=== PATIENT | male | born 1975 | race Caucasian/White ===

== ENCOUNTER 2022-03-22 07:47 | Inpatient (IN) ==
--- NOTE | 2022-03-17 18:11 | EKG ---
[facility] Test Date: 2022-03-17 Pat Name: Emmanuel Shook Department: [facility] Room: Gender: Male Mutuel Clerk: : [id number] Requested By: Byron Lozano Order Number: [id number] Reading MD: Brendan Muñoz Measurements Intervals [place] Rate: 67 P: 40 DC: 204 QRS: 74 QRSD: 99 T: 37 QT: 406 QTc: 429 Interpretive Statements Sinus rhythm Borderline prolonged DC interval Electronically Signed On 03-17-2022 18:11:37 PDT by Brendan Muñoz /[id number]
[2022-03-17 18:33] LABS: Basophils # (Auto) 0.04 K/mcL (0.00-0.30); Basophils % (Auto) 0.4 % (0.0-2.0); Eosinophils # (Auto) 0.18 K/mcL (0.00-0.70); Hematocrit 49.9 % (40.1-51.0); Hemoglobin 16.7 g/dL (13.7-17.5); Lymphocytes % (Auto) 26.5 % (15.5-49.0); Mean Cell Volume 93.1 fL (80.0-100.0); Mean Corpuscular HGB Conc 33.5 g/dL (31.0-36.0); Mean Platelet Volume 9.8 fL (8.8-12.5); Monocytes % (Auto) 6.6 % (1.0-12.0); Neutrophils % (Auto) 64.1 % (38.0-78.0); Platelet Count 256 K/mcL (140-440); RBC 5.36 M/mcL (4.63-6.08); Red Cell Distribution Width 13.6 % (11.5-14.5); WBC 9.1 K/mcL (4.5-11.0)
[2022-03-17 18:38] LABS: Appearance,Urine CLEAR (Clear); Bilirubin,Urine Negative (Negative); Color,Urine YELLOW; Culture Indicated,Urine No; Glucose,Urine (UA) Negative (Negative); Ketones,Urine Negative (Negative); Leukocyte Esterase,Urine 25 /uL (Negative); Mucus,Urine FEW /hpf; Nitrate,Urine Negative (Negative); Protein,Urine Negative (Negative); Specific Gravity,Urine 1.014 (1.000-1.035); Urine Blood 0.03 mg/dL (Negative); Urine RBC 1 /hpf (0-3); Urine Squamous Epithelial Cell < 1 /hpf (0-4); Urine WBC 8 /hpf (0-4); Urobilinogen,Urine Negative
[2022-03-17 19:04] LABS: Blood Urea Nitrogen 14 mg/dL (6-20); Calcium 10.2 mg/dL (8.6-10.4); Carbon Dioxide 26 mmol/L (22-30); Chloride 103 mmol/L (96-108); Glomerular Filtration Rate 90; Glucose 79 mg/dL (70-105)
[2022-03-17 19:08] LABS: Estimated Average Glucose(eAG) 114 mg/dL; Hemoglobin A1C 5.6 % Hgb (4.0-6.0)
[~2022-03-22 07:47] MED LIST: 0.9 % SODIUM CHLORIDE 9 ML, KETOROLAC 30 MG, ROPIVACAINE HCL/PF 49.5 ML, EPINEPHrine 0.... IJ SCH; ACETAMINOPHEN 500 MG TABLET PO SCH; IPRATROPIUM/ALBUTEROL 3 ML AMPUL.NEB NEB PRN; PREGABALIN 75 MG CAPSULE PO SCH; SCOPOLAMINE 1 PATCH PATCH TOPICAL PRN; ceFAZolin 3 GM in DEXTROSE 5% IN WATER 50 ML IV SCH; oxyCODONE 10 MG TAB.ER.12H PO SCH
[2022-03-22] MEDS ORDERED: GLYCOPYRROLATE 0.2 MG/ML VIAL IV ONE (10:16)
[2022-03-22] MEDS ORDERED: PROPOFOL 200 MG/20 ML VIAL IV ONE (10:16)
[2022-03-22] MEDS ORDERED: fentaNYL 100 MCG/2 ML VIAL IV ONE (10:16)
[2022-03-22] MEDS ORDERED: KETAMINE 50 MG/ML Syringe (ANEST) IV ONE (10:16)
[2022-03-22] MEDS ORDERED: DEXAMETHASONE 10 MG/ML VIAL ONE (10:16)
[2022-03-22] MEDS ORDERED: ePHEDrine 50 MG/5 ML SYRINGE (ANEST) IV ONE (10:16)
[2022-03-22] MEDS ORDERED: LIDOCAINE HCL/PF 100 MG/5 ML SYRINGE IV ONE (10:16)
[2022-03-22] MEDS ORDERED: ROPIVACAINE HCL/PF 20 ML VIAL IJ ONE (10:16)
[2022-03-22] MEDS ORDERED: MAGNESIUM SULFATE 2 GM/50 ML BAG IV ONE (10:16)
[2022-03-22] MEDS ORDERED: ONDANSETRON 4 MG/2 ML VIAL ONE (10:16)
[2022-03-22] MEDS ORDERED: METOCLOPRAMIDE 10 MG/2 ML VIAL IV PRN (11:03)
[2022-03-22] MEDS ORDERED: METHOCARBAMOL 1,000 MG/10 ML VIAL IV PRN (11:03)
[2022-03-22] MEDS ORDERED: IPRATROPIUM/ALBUTEROL 3 ML AMPUL.NEB NEB PRN (11:03)
[2022-03-22] MEDS ORDERED: ONDANSETRON 4 MG/2 ML VIAL IV PRN (11:03)
[2022-03-22] MEDS ORDERED: MEPERIDINE 25 MG/ML VIAL IV PRN (11:03)
[2022-03-22] MEDS ORDERED: HYDROmorphone 0.5 MG/0.5 ML SYRINGE IV PRN (11:03)
[2022-03-22] MEDS ORDERED: ACETAMINOPHEN 1,000 MG/100 ML BAG IV ONE (11:03)
--- NOTE | 2022-03-22 11:09 | Brief Operative Note ---
Brief Operative Note Date of procedure: 03/22/22 Pre-op diagnosis: Right knee loose ligament Post-op diagnosis: same Procedure: Right knee revision polyliner Grafts/Implants: Yes Anesthesia: GETA Findings: loosened ligament Complications: none Surgeon: Joel Duncan Maintenance Engineer [employer]: Jarad Rodriguez Estimated blood loss (cc): 20 Tourniquet Time (Minutes): 17 Specimens Removed/Pathology: none sent Condition: stable Disposition: PACU
[2022-03-22] MEDS ORDERED: TRANEXAMIC ACID 1,000 MG/10 ML VIAL IV ONE (11:14)
[2022-03-22] MEDS ORDERED: TEMAZEPAM 15 MG CAPSULE PO PRN (11:14)
[2022-03-22] MEDS ORDERED: HYDROcodone/APAP 10/325MG TABLET PO PRN (11:14)
--- NOTE | 2022-03-22 11:27 | Discharge Plan ---
Discharge Instructions - TKA Patient Instructions Total Knee Protocol: For Total Knee: Start ROM JAKE with stationary bike or rocking chair. Work on gaining full extension of knee. Posterior dislocation precautions provided. Hip abductor strengthening and gait training instructions provided. Apply Cryocuff as instructed. Dressing Care: May shower in 2 days and Aquacel Ag - leave on for 5 days Discharge Plan Patient/Caregiver Discharge Instructions Activity: ambulate only with your walker and as per physical therapy Diet: Regular Diet Prescriptions: New docusate sodium 100 mg capsule 100 mg PO BID Qty: 60 0RF aspirin [Ecotrin Low Strength] 81 mg tablet,delayed release (DR/EC) 81 mg PO BID Qty: 60 0RF hydrocodone-acetaminophen 10-325 mg tablet 1 - 2 tab PO Q4H PRN (Reason: pain) Qty: 75 0RF No Action (DME) auto cpap 16-17 cmH2O See Rx Instructions .Route .MEDSUPPLY Qty: 1 0RF Rx Instructions: As directed epinephrine [EpiPen] 0.3 mg/0.3 mL auto-injector 0.3 mg IM ONCE Qty: 1 2RF Rx Instructions: as a single dose (DME) BD Eclipse Luer-Marla 3 mL 22 gauge x 1 1/2" syringe See Rx Instructions .Route Qty: 50 0RF Rx Instructions: As directed 1x week testosterone injection (DME) blood-glucose meter [Blood Glucose Monitoring] Kit See Rx Instructions .Route Qty: 1 0RF Rx Instructions: As directed daily sugar check, brand as permitted by insurance (DME) Blood Glucose Test Strip See Rx Instructions .Route Qty: 50 0RF Rx Instructions: As directed daily, strips to match glucometer brand (DME) lancets [Comfort EZ Lancets] 21 gauge misc See Rx Instructions .Route Qty: 50 0RF Rx Instructions: As directed, check glucose 1 x daily metformin 500 mg tablet extended release 24 hr 500 mg PO BID Qty: 60 11RF testosterone cypionate 200 mg/mL oil 100 mg subcut QWEEK Qty: 3 0RF Other Ambulatory Orders: Physical Therapy DC - TKA (Routine) Location: None Selected Ordered By: Jarad Rodriguez Toilet Riser Discharge Order (ONCE) Location: None Selected Ordered By: Jarad Rodriguez Walker (ONCE) Location: None Selected Ordered By: Jarad Rodriguez Follow Up Plan Follow up with: Joel Duncan MD [Physician] - 04/01/22 8:40 am Jarad Rodriguez PA-C [Physician Fleet Dispatch Manager] - Patient Disposition: Home, Self-Care Prognosis: Good Rehab Potential: Good Overall status at discharge: patient is progressing back to baseline Discharge Orders: Discharge Order (Routine); Ordered 03/23/22 Ordered By: Jarad Rodriguez
[2022-03-22] MEDS: fentaNYL 100 MCG/2 ML VIAL IV PRN ×4 (12:08→12:19)
--- NOTE | 2022-03-22 13:00 | XRay Report ---
HISTORY: Postop revision of right knee prosthesis FINDINGS: There is a well positioned total knee prosthesis. There are also metal anchors in the distal femur and proximal tibia following prior ACL repair. On the lateral view there is a cluster of soft tissue calcifications along the posterior border of the patella. They measure up to 7 mm. These calcifications were seen on the prior x-ray done on 05/18/21. No fracture is present. IMPRESSION: well-positioned knee prosthesis. Periarticular soft tissue calcifications seen behind the patella on the lateral view Interpreted and Authenticated by: Dave Benitez 03/22/22
--- NOTE | 2022-03-22 15:28 | Operative Note ---
DATE OF OPERATION: 03/22/2022 PREOPERATIVE DIAGNOSIS: Right knee lax ligaments. POSTOPERATIVE DIAGNOSIS: Right knee lax ligaments. PROCEDURE: Right total knee arthroplasty revision of a poly liner to re-tension the ligaments. SURGEON: Joel Duncan M.D. BROADCAST TRAFFIC COORDINATOR: Jarad Rodriguez PA-C. The PA's assistance was required for the safe and efficient completion of the entire case. This provider's expertise and technical skill were required throughout the case. The PA assisted with preoperative coordination, intraoperative retraction, wound closure, dressing and splint application, as well as postoperative documentation and care coordination. ANESTHESIA: General LMA anesthesia. COMPLICATIONS: None. TOURNIQUET TIME: 280 pounds of pressure for 17 minutes. IMPLANTS: Size 5 tibial baseplate poly from a size 14 to a size 16. DESCRIPTION OF PROCEDURE: The patient was brought to the operating room, put to sleep with general LMA anesthesia. Once asleep, the patient had the right leg sterilely prepped and draped in the usual sterile fashion. Timeout confirming the site as well as preoperative antibiotics and tranexamic acid. We made a midline incision through the prior scar. Midvastus approach was performed. We exposed the joint, removed the prior poly, which was about 2 mm of play in the medial and lateral collateral ligament, both in flexion and extension. With this, he was increased in thickness of the poly to a size 16. This still maintained full range of motion was 0 degrees of extension and 130 degrees of flexion. We irrigated thoroughly. The final implant was placed. Tourniquet was deflated at 17 minutes and bleeding controlled with the Bovie. I then closed the midvastus approach with #1 Stratafix x2, closed the skin with Stratafix and adhesive closure with gayle. The patient tolerated this well. There were no complications. RBH:gaston Job ID: [id number] Doc ID: [id number] Joel Duncan MD
[2022-03-22] MEDS ORDERED: ceFAZolin 1 GM VIAL IV SCH (18:00)
[2022-03-22] MEDS ORDERED: ASPIRIN 325 MG ENTERIC COATED TABLET PO SCH (21:00)
== END 2022-03-22 15:12 | disposition home or self-care (01) | DRG 488 ==
LOC: MEDSUR 07:47
PROVIDERS: ADMIT Orthopaedic Surgery; ATTEND Orthopaedic Surgery

== ENCOUNTER 2023-08-22 11:34 | Observation (INO) ==
[2023-08-22] MEDS ORDERED: IOPAMIDOL 100 ML BOTTLE IV ONE (11:35)
[2023-08-22] MEDS: morphine 4 MG/ML VIAL IV ONE ×2 (12:10→13:50)
[2023-08-22 12:16] LABS: Basophils # (Auto) 0.05 K/mcL (0.00-0.30); Basophils % (Auto) 0.5 % (0.0-2.0); Eosinophils % (Auto) 1.9 % (0.0-7.0); Hematocrit 48.9 % (40.1-51.0); Hemoglobin 16.4 g/dL (13.7-17.5); Lymphocytes # (Auto) 1.94 K/mcL (1.50-4.80); Mean Cell Volume 94.8 fL (80.0-100.0); Mean Corpuscular HGB Conc 33.5 g/dL (31.0-36.0); Mean Platelet Volume 9.4 fL (8.8-12.5); Monocytes # (Auto) 0.85 K/mcL (0.10-0.90); Monocytes % (Auto) 7.9 % (1.0-12.0); Neutrophils % (Auto) 71.5 % (38.0-78.0); Platelet Count 209 K/mcL (140-440); RBC 5.16 M/mcL (4.63-6.08); WBC 10.8 K/mcL (4.5-11.0)
[2023-08-22 12:46] LABS: ALT/SGPT 89 U/L (<40); AST/SGOT 41 U/L (<40); Albumin 4.2 gm/dL (3.2-5.2); Albumin/Globulin Ratio 1.3 (1.0-2.3); Alkaline Phosphatase 133 U/L (39-117); Amylase 41 U/L (28-100); Bilirubin,Total 0.7 mg/dL (0.1-1.0); Blood Urea Nitrogen 12 mg/dL (6-20); Calcium 9.3 mg/dL (8.6-10.4); Carbon Dioxide 26 mmol/L (22-30); Chloride 101 mmol/L (96-108); Globulin 3.2 gm/dL (2.2-3.7); Glomerular Filtration Rate 89; Glucose 94 mg/dL (70-105)
[2023-08-22] MEDS: KETOROLAC 30 MG/ML VIAL IV ONE (13:44)
[2023-08-22] MEDS: ACETAMINOPHEN 1,000 MG/100 ML BAG IV ONE (13:53)
[2023-08-22] MEDS ORDERED: morphine 4 MG/ML VIAL IV PRN (14:33)
[2023-08-22] MEDS: HYDROmorphone 0.5 MG/0.5 ML SYRINGE IV PRN (15:10)
[2023-08-22] MEDS: HEPARIN SOD,PORK IN 0.45% NACL 25,000 UNIT in PREMIX 1 BAG IV SCH (16:13)
[2023-08-22] MEDS: HEPARIN 5,000 UNIT/ML VIAL IV ONE (16:13)
[2023-08-22 16:35] LABS: Partial Thromboplastin Time 32.2 sec (20.0-37.0); Prothrombin Time 13.5 sec (11.9-14.5)
[2023-08-22] MEDS ORDERED: ONDANSETRON 4 MG/2 ML VIAL IV PRN (20:47)
[2023-08-22] MEDS ORDERED: POTASSIUM CHLORIDE 40 MEQ in DEXTROSE 5% IN WATER 500 ML IV PRN (20:47)
[2023-08-22] MEDS ORDERED: SENNOSIDES 1 TABLET PO PRN (20:47)
[2023-08-22] MEDS ORDERED: ACETAMINOPHEN 325 MG TABLET PO PRN (20:47)
[2023-08-22] MEDS ORDERED: DEXTROSE 31 GM ORAL.SUSP PO PRN (20:47)
[2023-08-22] MEDS ORDERED: POTASSIUM CHLORIDE 20 MEQ TABLET PO PRN ×2 (20:47)
[2023-08-22] MEDS ORDERED: MAGNESIUM SULFATE 2 GM/50 ML BAG IV PRN (20:47)
[2023-08-22] MEDS ORDERED: IPRATROPIUM/ALBUTEROL 3 ML AMPUL.NEB NEB PRN (20:47)
[2023-08-22] MEDS ORDERED: DEXTROSE 50% 50 ML VIAL IV PRN (20:47)
[2023-08-22] MEDS ORDERED: POLYETHYLENE GLYCOL 3350 17 GM PACKET PO PRN (20:47)
[2023-08-22] MEDS: 0.9 % SODIUM CHLORIDE 1,000 ML IV SCH (20:55)
[2023-08-22] MEDS: DOCUSATE SODIUM 100 MG CAPSULE PO SCH (20:59)
[2023-08-22] MEDS: INSULIN LISPRO 1 UNIT/0.01 ML UNIT SQ SCH (21:04)
[2023-08-22] MEDS: morphine 4 MG/ML VIAL IV PRN (21:22)
[2023-08-22] MEDS: HYDROcodone/APAP 5/325MG TABLET PO PRN (21:31)
[2023-08-23] MEDS: HEPARIN SOD,PORK IN 0.45% NACL 500 ML IV ONE (02:28)
[2023-08-23 06:03] LABS: ALT/SGPT 84 U/L (<40); AST/SGOT 45 U/L (<40); Albumin 3.9 gm/dL (3.2-5.2); Albumin/Globulin Ratio 1.2 (1.0-2.3); Alkaline Phosphatase 141 U/L (39-117); Bilirubin,Direct 0.5 mg/dL (<0.3); Bilirubin,Total 1.1 mg/dL (0.1-1.0); Blood Urea Nitrogen 13 mg/dL (6-20); Calcium 8.8 mg/dL (8.6-10.4); Carbon Dioxide 26 mmol/L (22-30); Chloride 100 mmol/L (96-108); Globulin 3.2 gm/dL (2.2-3.7); Glomerular Filtration Rate 79; Glucose 141 mg/dL (70-105); Lactate Dehydrogenase 185 U/L (135-225); Phosphorous 2.9 mg/dL (2.5-4.5); Triglycerides 169 mg/dL (<150); Uric Acid 7.3 mg/dL (2.5-8.0)
[2023-08-23] MEDS: APIXABAN 5 MG TABLET PO SCH (08:21)
== END 2023-08-23 10:21 | disposition home or self-care (01) ==
LOC: ICU 11:34 → ED 11:34 → ICU 20:45
PROVIDERS: ADMIT Internal Medicine; ATTEND Internal Medicine